=== PATIENT | female | born 1970 | race African-American/Black ===

== ENCOUNTER 2019-10-21 09:16 | Emergency (ER) | payer OTHER ==
--- OUTSIDE RECORDS SUMMARY | 2019-10-21 10:13 | XMS REPORT | Continuity of Care Document ---
:1970 Author Organization [facility] Address [address] [place] [address] Care Team Providers Name Role Phone Unavailable Unavailable Unavailable Problems This patient has no known problems. Allergies, Adverse Reactions, Alerts This patient has no known allergies or adverse reactions. Social History Smoking Status Start Date Stop Date Source Never Smoker [facility] Medications This patient has no known medications. Vital Signs Vital Name Observation Time Observation Value Comments Source BP Diastolic 2019-06-08 00:00:00 104 mm[Hg] [place] [facility] Height 2019-06-08 00:00:00 69 [in_i] [place] [facility] BMI (Body Mass 2019-06-08 00:00:00 30.6 kg/m2 [place] manager of data [facility]) [facility] BP Systolic 2019-06-08 00:00:00 151 mm[Hg] [place] [facility] Body Weight 2019-06-08 00:00:00 207 [lb_av] [place] [facility] Procedures Procedure Date / Time Performed Performing Clinician Sourc e MAMMO, screening, 2019-06-08 00:00:00 [facility] digital, bilateral [facility] Tubal Ligation [facility] Delivery [facility] Plan of Care Planned Activity Planned Date Details Comments Source Diagnostic Test 2019-06-08 CMP, serum or plasma [facility] Pending 00:00:00 [code = CMP, serum [facility] or plasma] [facility] Diagnostic Test 2019-06-08 CBC w/ auto diff [place] Pending 00:00:00 [code = CBC w/ auto [facility] diff] [facility] Diagnostic Test 2019-06-08 TSH + free T4, serum [facility] Pending 00:00:00 [code = TSH + free [facility] T4, serum] Out[facility] Diagnostic Test 2019-06-08 lipid panel, serum [place] manager [facility] data Pending 00:00:00 [code = lipid panel, [facility] al [facility] serum] Outreach [facility] m Diagnostic Test 2019-06-08 pap, IG + CT/NG/TV [place] manager of data Pending 00:00:00 [code = pap, IG + [facility] CT/NG/TV] Outreach [facility] m Diagnostic Test 2019-06-08 HIV 1+2 AB + HIV 1 [place] manager of data Pending 00:00:00 p24 Ag, qualitative [facility] immunoassay, serum Outreach Program [code = HIV 1+2 AB + HIV 1 p24 Ag, qualitative immunoassay, serum] Diagnostic Test 2019-06-08 RPR (rapid plasma [place] Pending 00:00:00 reagin), serum [code [facility] = RPR (rapid plasma [facility] reagin), serum] Diagnostic Test 2019-06-08 HBsAg (hepatitis B [place] manager of data Pending 00:00:00 surface Ag), EIA, [facility] serum [code = HBsAg Out[facility] (hepatitis B surface Ag), EIA, serum] Diagnostic Test 2019-06-08 lh + FSH, serum [facility] Pending 00:00:00 [code = lh + FSH, [facility] serum] Outreach Progra m Future Appointment 2020-06-08 Sara Dumont, [address] [place] 00:00:00 Liane Ma; , [facility] [id number] Outreach Progr am Encounters Start End Encounter Admission Attending Care Care Encounter Source Date/Time Date/Time Type Type Clinicians Facility Department ID 2019-06-08 2019-06-08 Sara SCHNEIDER [place] - [id number] Fabiola atagor 00:00:00 00:00:00 Kaykay Chávez, [facility] MEDICAL ASSISTANT INTERNAL MEDICINE: [address] [facility] Liane Ma, CORE CHECKER [facility] [place], [facility] [id number] Progr am , Ph. Results This patient has no known results.
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
[2019-10-21] MEDS ORDERED: KETOROLAC 30 MG/ML INJ ONE (11:06)
[2019-10-21 11:24] VITALS: TEMP 97.3
[2019-10-21 11:25] VITALS: BP 126/79; O2SAT 100
== END 2019-10-21 11:19 | disposition home or self-care (01) ==
LOC: ER 09:16
DX: S39.012A Strain of muscle, fascia and tendon of lower back, initial encounter (principal); S16.1XXA Strain of muscle, fascia and tendon at neck level, initial encounter; V49.40XA Driver injured in collision with unspecified motor vehicles in traffic accident, initial encounter; E03.9 Hypothyroidism, unspecified; I10 Essential (primary) hypertension
CPT/HCPCS: 82565; 70450; 72125; 71260; 74177; 96374; 99284; Q9967